=== PATIENT | female | born 1970 | race Two or more races ===

== ENCOUNTER → 2022-03-26 | Outpatient (CLI) | payer OTHER | END | disposition home or self-care (01) | LOC: NUCLEAR 07:00 | DX: R07.89 Other chest pain (principal); I10 Essential (primary) hypertension; E66.9 Obesity, unspecified | CPT/HCPCS: 78452; 93017; A9500 ==

== ENCOUNTER 2024-07-27 12:15 | Emergency (ER) | payer OTHER ==
[~2024-07-27] VITALS: Ht 172.7 cm; Wt 126.6 kg
[2024-07-27] MEDS ORDERED: COZAAR25 MG (12:48)
[2024-07-27] MEDS ORDERED: LORazepam 2 MG/ML VIAL IM ONE (13:45)
[2024-07-27 16:30] LABS: HEMATOCRIT 32.9 % (36.0-45.00); HEMOGLOBIN 10.7 g/dL (12.0-15.00); MEAN CELL VOLUME 71.5 fL (80.00-100.00); MEAN CORPUSCULAR HEMOGLOBIN 23.3 pg (27.00-32.0); MEAN CORPUSCULAR HGB CONC 32.5 g/dl (32.0-36.0); PLATELET COUNT 292 K/uL (150-450); RED CELL DISTRIBUTION WIDTH 15.7 % (11.5-14.5)
== END 2024-07-27 18:06 | disposition home or self-care (01) ==
LOC: ER 12:17
PROVIDERS: General Practice
DX: F41.9 Anxiety disorder, unspecified (principal); M25.512 Pain in left shoulder; I10 Essential (primary) hypertension; Z88.0 Allergy status to penicillin